=== PATIENT | female | born 1940 | race Caucasian/White ===

== ENCOUNTER 2016-06-21 17:07 | Emergency (ER) | payer OTHER ==
[~2016-06-21] VITALS: Ht 167.6 cm; Wt 124.1 kg
[~2016-06-21 17:07] MED LIST: ATOR10TA84 PO; CARV25 PO; DONE5TAB PO; MELO-273 PO; MEMA28CA PO; QUET200T PO; QUET25TA PO; TRAZ-144 PO; VALS40TA4 PO
[2016-06-21] MEDS ORDERED: ATOR10TA84 PO (18:13)
[2016-06-21] MEDS ORDERED: ACET-66 PO (18:13)
[2016-06-21] MEDS ORDERED: SERT100T12 PO (18:13)
[2016-06-21] MEDS ORDERED: MELO-273 PO (18:13)
[2016-06-21] MEDS ORDERED: MECL-111 PO (18:13)
[2016-06-21] MEDS ORDERED: TRAZ-147 PO (18:13)
[2016-06-21] MEDS ORDERED: IBUP-2070 PO (18:13)
[2016-06-21 18:23] LABS: BASOPHILS % (AUTO) 0.2 % (0.0-2.0); EOSINOPHILS % (AUTO) 1.7 % (1.0-6.0); HEMATOCRIT 38.8 % (36-46); LYMPHOCYTES # (AUTO) 2.2 K/uL (1.0-4.8); LYMPHOCYTES % (AUTO) 26.1 % (22.0-44.0); MEAN CORPUSCULAR HGB CONC 33.5 G/dL (31.0-37.0); MEAN CORPUSCULAR VOLUME 99 fL (80-100); MONOCYTES # (AUTO) 0.6 K/uL (0.1-1.0); MONOCYTES % (AUTO) 6.8 % (2.0-9.0); NEUTROPHILS # (AUTO) 5.4 K/uL (1.8-7.7); NEUTROPHILS % (AUTO) 65.2 % (40.0-70.0); PLATELET COUNT (AUTO) 153 K/uL (150-450); RED BLOOD CELL COUNT(AUTO) 3.93 MIL/uL (4.00-5.20); RED CELL DISTRIBUTION WIDTH 14.1 % (11.5-14.5); WHITE BLOOD COUNT (AUTO) 8.4 K/uL (4.5-11.0)
[2016-06-21 18:41] LABS: ANION GAP 5 mmol/L (8-16); CALCIUM, TOTAL 9.2 mg/dL (8.8-10.5); CARBON DIOXIDE 32 mmol/L (22-29); CHLORIDE 102 mmol/L (98-107); GLOMERULAR FILTR. RATE CALC 54 mL/min (>60); POTASSIUM 3.6 mmol/L (3.5-5.1); SODIUM SERUM 139 mmol/L (136-145); UREA NITROGEN, BLOOD 16 mg/dL (7-18)
[2016-06-21 18:47] LABS: ALANINE AMINOTRANSFERASE 17 U/L (12-78); ALBUMIN 4.2 g/dL (3.4-5.0); ASPARTATE AMINOTRANSFERASE 12 U/L (15-37); BILIRUBIN,TOTAL 0.3 mg/dL (0.1-1.0); TOTAL PROTEIN, SERUM 7.5 g/dL (6.4-8.2)
[2016-06-21] MEDS ORDERED: LORazepam 1 MG TABLET PO ONE (20:30)
[2016-06-21 20:40] VITALS: BP 140/81
== END 2016-06-21 20:55 | disposition home or self-care (01) ==
LOC: EMS 17:09
DX: F20.9 Schizophrenia, unspecified (principal); F03.90 Unspecified dementia, unspecified severity, without behavioral disturbance, psychotic disturbance, mood disturbance, and anxiety; F69 Unspecified disorder of adult personality and behavior; I10 Essential (primary) hypertension; I25.2 Old myocardial infarction; I25.10 Atherosclerotic heart disease of native coronary artery without angina pectoris
CPT/HCPCS: 36415; 80053; 80307; 85025; 99285; G0480

== ENCOUNTER 2016-06-23 17:14 | Emergency (ER) | payer OTHER ==
[~2016-06-23] VITALS: Ht 170.2 cm; Wt 81.8 kg
[~2016-06-23 17:14] MED LIST changes: +ACET-66 PO; +IBUP-2070 PO; +MECL-111 PO; +SERT100T12 PO; -TRAZ-144 PO; +TRAZ-147 PO
[2016-06-23] MEDS ORDERED: TraZODone HCL 50 MG TABLET PO ONE (19:45)
[2016-06-23] MEDS ORDERED: QUEtiapine FUMARATE 100 MG TABLET PO ONE (19:45)
[2016-06-23] MEDS ORDERED: TRAZ-144 PO (19:59)
[2016-06-23] MEDS ORDERED: QUET100T PO (19:59)
[2016-06-23 20:14] VITALS: BP 128/92
== END 2016-06-23 20:56 | disposition home or self-care (01) ==
LOC: EMS 17:15
DX: F03.91 Unspecified dementia, unspecified severity, with behavioral disturbance (principal); E78.00 Pure hypercholesterolemia, unspecified; I25.2 Old myocardial infarction; I25.10 Atherosclerotic heart disease of native coronary artery without angina pectoris
CPT/HCPCS: 99285

== ENCOUNTER 2016-11-14 19:54 | Emergency (ER) | payer OTHER ==
[~2016-11-14] VITALS: Ht 167.6 cm; Wt 81.8 kg
[~2016-11-14 19:54] MED LIST changes: +QUET100T PO; -QUET200T PO; +TRAZ-144 PO; -TRAZ-147 PO
[2016-11-14] MEDS ORDERED: ESCI10TA PO (20:04)
[2016-11-14 20:40] LABS: APPEARANCE,URINE CLEAR (CLEAR); GLUCOSE, URINE (UA) NEGATIVE (NEGATIVE); KETONES,URINE NEGATIVE (NEGATIVE); LEUKOCYTE ESTERASE ,URINE NEGATIVE (NEGATIVE); OCCULT BLOOD,URINE NEGATIVE (NEGATIVE); PROTEIN,URINE POS 1+ (NEGATIVE)
[2016-11-14] MEDS ORDERED: QUEtiapine FUMARATE 100 MG TABLET PO ONE (20:45)
[2016-11-14] MEDS ORDERED: TraZODone HCL 50 MG TABLET PO ONE (20:45)
[2016-11-14 20:48] LABS: ADD UA MICROSCOPIC NO
[2016-11-14 21:11] LABS: ANION GAP 10 mmol/L (8-16); CALCIUM, TOTAL 9.1 mg/dL (8.8-10.5); CARBON DIOXIDE 26 mmol/L (22-29); CHLORIDE 102 mmol/L (98-107); CREATININE 1.32 mg/dL (0.60-1.30); GLOMERULAR FILTR. RATE CALC 39 mL/min (>60); POTASSIUM 3.7 mmol/L (3.5-5.1); SODIUM SERUM 138 mmol/L (136-145); UREA NITROGEN, BLOOD 24 mg/dL (7-18)
[2016-11-14 21:17] LABS: ALANINE AMINOTRANSFERASE 15 U/L (12-78); ALBUMIN 4.1 g/dL (3.4-5.0); ASPARTATE AMINOTRANSFERASE 10 U/L (15-37); BILIRUBIN,TOTAL 0.3 mg/dL (0.1-1.0); TOTAL PROTEIN, SERUM 7.1 g/dL (6.4-8.2)
[2016-11-14 21:27] LABS: BASOPHILS # (AUTO) 0.03 K/uL (0.00-0.20); BASOPHILS % (AUTO) 0.3 % (0.0-2.0); EOSINOPHILS # (AUTO) 0.12 K/uL (0.00-0.70); EOSINOPHILS % (AUTO) 1.21 % (1.0-6.0); HEMATOCRIT 38.6 % (36-46); HEMOGLOBIN 12.6 g/dL (12.0-16.0); LYMPHOCYTES # (AUTO) 1.7 K/uL (1.0-4.8); LYMPHOCYTES % (AUTO) 17.1 % (22.0-44.0); MEAN CORPUSCULAR HEMOGLOBIN 31.9 pg (26.0-34.0); MEAN CORPUSCULAR HGB CONC 32.7 G/dL (31.0-37.0); MEAN CORPUSCULAR VOLUME 98 fL (80-100); MONOCYTES # (AUTO) 0.7 K/uL (0.1-1.0); MONOCYTES % (AUTO) 6.9 % (2.0-9.0); NEUTROPHILS # (AUTO) 7.5 K/uL (1.8-7.7); NEUTROPHILS % (AUTO) 74.5 % (40.0-70.0); PLATELET COUNT (AUTO) 148 K/uL (150-450); RED BLOOD CELL COUNT(AUTO) 3.95 MIL/uL (4.00-5.20); RED CELL DISTRIBUTION WIDTH 14.2 % (11.5-14.5); WHITE BLOOD COUNT (AUTO) 10.1 K/uL (4.5-11.0)
[2016-11-15 00:12] VITALS: BP 122/78
== END 2016-11-15 00:14 | disposition home or self-care (01) ==
LOC: EMS 19:55
DX: F03.90 Unspecified dementia, unspecified severity, without behavioral disturbance, psychotic disturbance, mood disturbance, and anxiety (principal); I25.2 Old myocardial infarction; I25.10 Atherosclerotic heart disease of native coronary artery without angina pectoris; E78.00 Pure hypercholesterolemia, unspecified
CPT/HCPCS: 36415; 80053; 80307; 81003; 85025; 99285; G0480

== ENCOUNTER 2017-02-24 10:14 | Inpatient (IN) | payer MEDICARE ==
[~2017-02-24] VITALS: Ht 170.2 cm; Wt 68.1 kg
[~2017-02-24 10:14] MED LIST changes: -ACET-66 PO; +DIVA250T4 PO; +DONE10TA8 PO; -DONE5TAB PO; +ESCI10TA PO; -IBUP-2070 PO; -MECL-111 PO; +MELO-107 PO; -MELO-273 PO; +MEMA10TA11 PO; -MEMA28CA PO; -QUET25TA PO; -SERT100T12 PO
[2017-02-24] MEDS ORDERED: 0.9% SODIUM CHLORIDE 10 ML SYRINGE IVP PRN ×2 (10:30→11:45)
[2017-02-24] MEDS ORDERED: SODIUM CHLORIDE 0.9% 1,000 ML IV ONE ×4 (10:30→15:30)
[2017-02-24 10:32] LABS: GLUCOSE,POINT OF CARE 140 MG/DL (70-110)
[2017-02-24 10:46] LABS: INR 1.1 (0.9-1.1); PROTHROMBIN TIME 11.2 SEC (9.4-11.6)
[2017-02-24 10:48] LABS: CALCIUM, TOTAL 9.2 mg/dL (8.8-10.5); CREATININE 1.17 mg/dL (0.60-1.30); POTASSIUM 3.8 mmol/L (3.5-5.1)
[2017-02-24 10:50] LABS: HEMATOCRIT 41.1 % (36-46); HEMOGLOBIN 14.1 g/dL (12.0-16.0); MEAN CORPUSCULAR HEMOGLOBIN 33.1 pg (26.0-34.0); MEAN CORPUSCULAR HGB CONC 34.4 G/dL (31.0-37.0); MEAN CORPUSCULAR VOLUME 96 fL (80-100); PLATELET COUNT (AUTO) 71 K/uL (150-450); RED BLOOD CELL COUNT(AUTO) 4.27 MIL/uL (4.00-5.20); WHITE BLOOD COUNT (AUTO) 19.1 K/uL (4.5-11.0)
[2017-02-24 10:54] LABS: ALBUMIN 3.5 g/dL (3.4-5.0); BILIRUBIN,TOTAL 0.9 mg/dL (0.1-1.0); TOTAL PROTEIN, SERUM 7.6 g/dL (6.4-8.2)
[2017-02-24 11:04] LABS: LACTIC ACID 1.9 mmol/L (0.4-2.0)
[2017-02-24 11:13] LABS: BAND NEUTROPHILS % (MANUAL) 15 % (1-5); LYMPHOCYTES % (MANUAL) 11 % (22-44); TOTAL CELLS COUNTED 100
[2017-02-24 11:14] LABS: RBC MORPHOLOGY COMMENT NORMAL RBC MORPH
[2017-02-24] MEDS ORDERED: AZITHROMYCIN 500 MG/NS 250 ML IV ONE (11:30)
[2017-02-24] MEDS ORDERED: CefTRIAXone 1 GM/DEXTROSE 50 ML IV ONE (11:30)
[2017-02-24 11:42] LABS: APPEARANCE,URINE CLOUDY (CLEAR); GLUCOSE, URINE (UA) NEGATIVE (NEGATIVE); KETONES,URINE 40 mg/dL (NEGATIVE); LEUKOCYTE ESTERASE ,URINE LARGE (NEGATIVE); OCCULT BLOOD,URINE MODERATE (NEGATIVE); PROTEIN,URINE SEE CONFIRM (NEGATIVE)
[2017-02-24 11:44] LABS: ADD UA MICROSCOPIC YES
[2017-02-24] MEDS ORDERED: ACETAMINOPHEN 325 MG TABLET PO PRN ×2 (11:45→15:30)
[2017-02-24] MEDS ORDERED: ACETAMINOPHEN 1000 MG/ISO-OSM 100 ML IV ONE (11:45)
[2017-02-24 11:58] LABS: RBC,URINE 26-50 /HPF (0-2); SULFOSALICYLIC ACID,URINE 2+ (Negative); WBC,URINE 51-100 /HPF (0-5)
[2017-02-24 11:59] LABS: SQUAMOUS EPITHELIAL CELL,UR Moderate /LPF (None Seen)
[2017-02-24 13:30] VITALS: BP 107/58
[2017-02-24 15:11] VITALS: BP 115/62
[2017-02-24] MEDS ORDERED: ZOLPIDEM TARTRATE 5 MG TABLET PO PRN (15:30)
[2017-02-24] MEDS ORDERED: HYDROCODONE/ACETAMINOPHEN 5-325 MG TABLET PO PRN (15:30)
[2017-02-24] MEDS ORDERED: ONDANSETRON HCL 4 MG/2 ML VIAL IVP PRN (15:30)
[2017-02-24] MEDS ORDERED: BISACODYL 10 MG RECTAL RECTAL SUPPOSITORY PR PRN (15:30)
[2017-02-24] MEDS ORDERED: MORPHINE SULFATE 2 MG/ML SYRINGE IVP PRN (15:30)
[2017-02-24] MEDS ORDERED: MAGNESIUM HYDROXIDE SUSPENSION 30 ML UDCUP PO PRN (15:30)
[2017-02-24] MEDS: HEPARIN SODIUM,PORCINE 5,000 UNITS/ML VIAL SQ SCH ×2 (17:05→23:56)
[2017-02-24 20:02] VITALS: BP 143/67
[2017-02-24] MEDS ORDERED: MELOXICAM 7.5 MG TABLET PO SCH (21:00)
[2017-02-24] MEDS: DOCUSATE SODIUM 100 MG CAPSULE PO SCH (21:06)
[2017-02-24] MEDS: MEMANTINE HCL 10 MG TABLET PO SCH (21:06)
[2017-02-24] MEDS: ATORVASTATIN CALCIUM 10 MG TABLET PO SCH (21:06)
[2017-02-24 23:56] VITALS: BP 160/87
[2017-02-25 05:10] VITALS: BP 145/68
[2017-02-25 06:00] LABS: BASOPHILS # (AUTO) 0.01 K/uL (0.00-0.20); BASOPHILS % (AUTO) 0.1 % (0.0-2.0); EOSINOPHILS # (AUTO) 0.02 K/uL (0.00-0.70); HEMATOCRIT 34.7 % (36-46); HEMOGLOBIN 11.8 g/dL (12.0-16.0); LYMPHOCYTES # (AUTO) 0.5 K/uL (1.0-4.8); LYMPHOCYTES % (AUTO) 3.4 % (22.0-44.0); MEAN CORPUSCULAR HEMOGLOBIN 33.1 pg (26.0-34.0); MEAN CORPUSCULAR VOLUME 98 fL (80-100); MONOCYTES # (AUTO) 0.9 K/uL (0.1-1.0); MONOCYTES % (AUTO) 5.4 % (2.0-9.0); NEUTROPHILS # (AUTO) 14.4 K/uL (1.8-7.7); PLATELET COUNT (AUTO) 63 K/uL (150-450); RED BLOOD CELL COUNT(AUTO) 3.55 MIL/uL (4.00-5.20); RED CELL DISTRIBUTION WIDTH 14.1 % (11.5-14.5); WHITE BLOOD COUNT (AUTO) 15.8 K/uL (4.5-11.0)
[2017-02-25 06:16] LABS: ANION GAP 8 mmol/L (8-16); CALCIUM, TOTAL 8.4 mg/dL (8.8-10.5); CARBON DIOXIDE 25 mmol/L (22-29); CHLORIDE 114 mmol/L (98-107); CREATININE 0.89 mg/dL (0.60-1.30); GLOMERULAR FILTR. RATE CALC > 60 mL/min (>60); POTASSIUM 3.6 mmol/L (3.5-5.1); SODIUM SERUM 147 mmol/L (136-145); UREA NITROGEN, BLOOD 25 mg/dL (7-18)
[2017-02-25 06:50] LABS: NEUTROPHILS % (AUTO) 91.1 % (40.0-70.0)
[2017-02-25] MEDS ORDERED: MELOXICAM 7.5 MG TABLET PO SCH (08:00)
[2017-02-25 08:07] VITALS: BP 138/74
[2017-02-25] MEDS: HEPARIN SODIUM,PORCINE 5,000 UNITS/ML VIAL SQ SCH (08:51)
[2017-02-25] MEDS: DOCUSATE SODIUM 100 MG CAPSULE PO SCH ×2 (08:58→20:07)
[2017-02-25] MEDS: PANTOPRAZOLE SODIUM 40 MG DR TABLET PO SCH (08:58)
[2017-02-25] MEDS: MEMANTINE HCL 10 MG TABLET PO SCH ×2 (08:58→20:07)
[2017-02-25 09:36] LABS: RBC MORPHOLOGY COMMENT NORMAL RBC MORPH
[2017-02-25] MEDS ORDERED: SODIUM CHLORIDE 0.9% 100 ML ONE (11:51)
[2017-02-25] MEDS: CefTRIAXone 1 GM/DEXTROSE 50 ML IV SCH (11:56)
[2017-02-25 12:11] VITALS: BP 127/52
[2017-02-25] MEDS ORDERED: MAGNESIUM SULFATE 2 GM in DEXTROSE 5%-WATER 50 ML IV PRN (13:00)
[2017-02-25] MEDS ORDERED: MAGNESIUM SULFATE 4 GM/WATER 100 ML IV PRN (13:00)
[2017-02-25] MEDS ORDERED: MAGNESIUM OXIDE 400 MG TABLET PO PRN (13:00)
[2017-02-25 13:06] LABS: ALBUMIN 2.5 g/dL (3.4-5.0)
[2017-02-25 16:27] VITALS: BP 102/45
[2017-02-25 19:44] VITALS: BP 113/53
[2017-02-25] MEDS: ATORVASTATIN CALCIUM 10 MG TABLET PO SCH (20:07)
[2017-02-26] VITALS (7 sets, daily range): BP systolic 123–138; BP diastolic 51–70
[2017-02-26 06:22] LABS: BASOPHILS % (AUTO) 0.1 % (0.0-2.0); EOSINOPHILS % (AUTO) 0.7 % (1.0-6.0); HEMATOCRIT 33.7 % (36-46); HEMOGLOBIN 11.6 g/dL (12.0-16.0); LYMPHOCYTES % (AUTO) 9.3 % (22.0-44.0); MEAN CORPUSCULAR HEMOGLOBIN 33.2 pg (26.0-34.0); MEAN CORPUSCULAR HGB CONC 34.3 G/dL (31.0-37.0); MEAN CORPUSCULAR VOLUME 97 fL (80-100); MONOCYTES # (AUTO) 1.2 K/uL (0.1-1.0); MONOCYTES % (AUTO) 10.9 % (2.0-9.0); NEUTROPHILS # (AUTO) 8.6 K/uL (1.8-7.7); PLATELET COUNT (AUTO) 72 K/uL (150-450); RED BLOOD CELL COUNT(AUTO) 3.48 MIL/uL (4.00-5.20); RED CELL DISTRIBUTION WIDTH 13.7 % (11.5-14.5); WHITE BLOOD COUNT (AUTO) 10.9 K/uL (4.5-11.0)
[2017-02-26 06:24] LABS: CALCIUM, TOTAL 8.1 mg/dL (8.8-10.5); CREATININE 0.94 mg/dL (0.60-1.30); MAGNESIUM 1.5 mg/dL (1.80-2.40)
[2017-02-26] MEDS ORDERED: SODIUM CHLORIDE 0.9% 100 ML ONE (08:52)
[2017-02-26] MEDS: DOCUSATE SODIUM 100 MG CAPSULE PO SCH ×2 (08:58→20:28)
[2017-02-26] MEDS: PANTOPRAZOLE SODIUM 40 MG DR TABLET PO SCH (08:59)
[2017-02-26] MEDS: MEMANTINE HCL 10 MG TABLET PO SCH ×2 (08:59→20:20)
[2017-02-26] MEDS ORDERED: POTASSIUM CHL 10 MEQ/WATER 50 ML IV PRN (09:45)
[2017-02-26] MEDS: POTASSIUM CHLORIDE 20 MEQ ER TABLET PO PRN ×2 (10:40→15:37)
[2017-02-26] MEDS: ASPIRIN 81 MG CHEWABLE TABLET PO SCH (10:40)
[2017-02-26] MEDS: CefTRIAXone 1 GM/DEXTROSE 50 ML IV SCH (11:39)
[2017-02-26] MEDS: ATORVASTATIN CALCIUM 10 MG TABLET PO SCH (20:21)
[2017-02-27 04:12] VITALS: BP 132/58
[2017-02-27 07:30] VITALS: BP 167/67
[2017-02-27 07:30] LABS: BASOPHILS % (AUTO) 0.1 % (0.0-2.0); EOSINOPHILS % (AUTO) 1.3 % (1.0-6.0); HEMATOCRIT 37.3 % (36-46); HEMOGLOBIN 12.5 g/dL (12.0-16.0); LYMPHOCYTES % (AUTO) 10.8 % (22.0-44.0); MEAN CORPUSCULAR HEMOGLOBIN 32.8 pg (26.0-34.0); MEAN CORPUSCULAR HGB CONC 33.4 G/dL (31.0-37.0); MEAN CORPUSCULAR VOLUME 98 fL (80-100); MONOCYTES # (AUTO) 1.1 K/uL (0.1-1.0); MONOCYTES % (AUTO) 11.2 % (2.0-9.0); NEUTROPHILS # (AUTO) 7.3 K/uL (1.8-7.7); NEUTROPHILS % (AUTO) 76.6 % (40.0-70.0); PLATELET COUNT (AUTO) 101 K/uL (150-450); RED BLOOD CELL COUNT(AUTO) 3.81 MIL/uL (4.00-5.20); RED CELL DISTRIBUTION WIDTH 13.6 % (11.5-14.5); WHITE BLOOD COUNT (AUTO) 9.5 K/uL (4.5-11.0)
[2017-02-27 08:00] LABS: B-TYPE NATRIURETIC PEPTIDE 590 pg/mL (0-100)
[2017-02-27 08:13] LABS: ANION GAP 6 mmol/L (8-16); CALCIUM, TOTAL 8.6 mg/dL (8.8-10.5); CARBON DIOXIDE 29 mmol/L (22-29); CHLORIDE 104 mmol/L (98-107); CREATINE KINASE MB 0.7 ng/mL (0-5); CREATINE KINASE, TOTAL 136 U/L (26-192); CREATININE 0.77 mg/dL (0.60-1.30); GLOMERULAR FILTR. RATE CALC > 60 mL/min (>60); POTASSIUM 3.7 mmol/L (3.5-5.1); SODIUM SERUM 139 mmol/L (136-145); UREA NITROGEN, BLOOD 7 mg/dL (7-18)
[2017-02-27] MEDS: DOCUSATE SODIUM 100 MG CAPSULE PO SCH ×2 (08:51→21:32)
[2017-02-27] MEDS: PANTOPRAZOLE SODIUM 40 MG DR TABLET PO SCH (08:51)
[2017-02-27] MEDS: MEMANTINE HCL 10 MG TABLET PO SCH ×2 (08:51→21:32)
[2017-02-27] MEDS: ASPIRIN 81 MG CHEWABLE TABLET PO SCH (08:52)
[2017-02-27] MEDS ORDERED: *CLINICAL-RX DOSING [ENTER DRUG IN COMMENTS] CLINICAL ONE (11:00)
[2017-02-27 11:01] VITALS: BP 155/49
[2017-02-27] MEDS: CefoTEtan DISOD 1 GM/DEXTROSE 50 ML IV SCH (12:12)
[2017-02-27 15:11] VITALS: BP 147/99
[2017-02-27 19:41] VITALS: BP 135/73
[2017-02-27] MEDS: ATORVASTATIN CALCIUM 10 MG TABLET PO SCH (21:31)
[2017-02-27 23:50] VITALS: BP 126/64
[2017-02-28] MEDS: CefoTEtan DISOD 1 GM/DEXTROSE 50 ML IV SCH ×3 (00:34→23:46)
[2017-02-28 06:26] VITALS: BP 146/67
[2017-02-28] MEDS: DOCUSATE SODIUM 100 MG CAPSULE PO SCH ×2 (08:10→20:24)
[2017-02-28] MEDS: MEMANTINE HCL 10 MG TABLET PO SCH ×2 (08:11→20:23)
[2017-02-28] MEDS: PANTOPRAZOLE SODIUM 40 MG DR TABLET PO SCH (08:11)
[2017-02-28] MEDS: ASPIRIN 81 MG CHEWABLE TABLET PO SCH (08:11)
[2017-02-28 08:15] VITALS: BP 159/74
[2017-02-28] MEDS ORDERED: SODIUM CHLORIDE 0.9% 100 ML ONE (11:44)
[2017-02-28 12:00] VITALS: BP 115/55
[2017-02-28] MEDS ORDERED: ASPI81TA39 PO (13:15)
[2017-02-28] MEDS ORDERED: CEFO1I IV (13:16)
[2017-02-28] MEDS ORDERED: DSS100 PO (13:17)
[2017-02-28] MEDS ORDERED: PANT40TA25 PO (13:18)
[2017-02-28] MEDS ORDERED: ACET-784 PO (13:18)
[2017-02-28] MEDS ORDERED: BISA10S PR (13:19)
[2017-02-28] MEDS ORDERED: HYDR-4061 PO (13:20)
[2017-02-28] MEDS ORDERED: MOM30 PO (13:26)
[2017-02-28 15:57] VITALS: BP 115/61
[2017-02-28 19:30] VITALS: BP 140/80
[2017-02-28] MEDS: ATORVASTATIN CALCIUM 10 MG TABLET PO SCH (20:24)
[2017-02-28] MEDS ORDERED: SODIUM CHLORIDE 0.9% 250 ML IV ONE (23:35)
[2017-02-28 23:53] VITALS: BP 140/58
[2017-03-01 05:13] VITALS: BP 149/67
[2017-03-01 07:42] VITALS: BP 136/66
[2017-03-01] MEDS: DOCUSATE SODIUM 100 MG CAPSULE PO SCH ×2 (08:36→22:05)
[2017-03-01] MEDS: MEMANTINE HCL 10 MG TABLET PO SCH ×2 (08:36→22:05)
[2017-03-01] MEDS: ASPIRIN 81 MG CHEWABLE TABLET PO SCH (08:36)
[2017-03-01] MEDS: PANTOPRAZOLE SODIUM 40 MG DR TABLET PO SCH (08:36)
[2017-03-01 11:20] VITALS: BP 143/83
[2017-03-01] MEDS ORDERED: SODIUM CHLORIDE 0.9% 100 ML ONE (12:00)
[2017-03-01] MEDS: CefoTEtan DISOD 1 GM/DEXTROSE 50 ML IV SCH ×2 (12:01→23:40)
[2017-03-01 15:56] VITALS: BP 146/75
[2017-03-01 19:56] VITALS: BP 162/85
[2017-03-01] MEDS: ATORVASTATIN CALCIUM 10 MG TABLET PO SCH (22:04)
[2017-03-02 00:22] VITALS: BP 151/70
[2017-03-02 04:33] VITALS: BP 150/65
[2017-03-02 07:34] VITALS: BP 133/63
[2017-03-02] MEDS: PANTOPRAZOLE SODIUM 40 MG DR TABLET PO SCH (08:27)
[2017-03-02] MEDS: MEMANTINE HCL 10 MG TABLET PO SCH (08:27)
[2017-03-02] MEDS: ASPIRIN 81 MG CHEWABLE TABLET PO SCH (08:27)
[2017-03-02] MEDS: DOCUSATE SODIUM 100 MG CAPSULE PO SCH (08:29)
[2017-03-02 10:27] LABS: BASOPHILS % (AUTO) 0.3 % (0.0-2.0); EOSINOPHILS % (AUTO) 1.4 % (1.0-6.0); HEMATOCRIT 38.8 % (36-46); HEMOGLOBIN 13.2 g/dL (12.0-16.0); LYMPHOCYTES # (AUTO) 1.2 K/uL (1.0-4.8); LYMPHOCYTES % (AUTO) 10.9 % (22.0-44.0); MEAN CORPUSCULAR HEMOGLOBIN 32.7 pg (26.0-34.0); MEAN CORPUSCULAR HGB CONC 34.1 G/dL (31.0-37.0); MEAN CORPUSCULAR VOLUME 96 fL (80-100); MONOCYTES # (AUTO) 0.9 K/uL (0.1-1.0); MONOCYTES % (AUTO) 8.8 % (2.0-9.0); NEUTROPHILS # (AUTO) 8.4 K/uL (1.8-7.7); NEUTROPHILS % (AUTO) 78.6 % (40.0-70.0); PLATELET COUNT (AUTO) 203 K/uL (150-450); RED BLOOD CELL COUNT(AUTO) 4.05 MIL/uL (4.00-5.20); RED CELL DISTRIBUTION WIDTH 13.3 % (11.5-14.5); WHITE BLOOD COUNT (AUTO) 10.7 K/uL (4.5-11.0)
[2017-03-02 10:47] LABS: CREATININE 1.05 mg/dL (0.60-1.30); POTASSIUM 3.7 mmol/L (3.5-5.1)
[2017-03-02 11:23] VITALS: BP 150/70
[2017-03-02] MEDS: CefoTEtan DISOD 1 GM/DEXTROSE 50 ML IV SCH (12:30)
[2017-03-02 15:01] VITALS: BP 141/67
== END 2017-03-02 17:55 | disposition short-term general hospital (02) | DRG 871 ==
LOC: EMS 10:15 → 5S 12:06
PROVIDERS: ADMIT Internal Medicine; ATTEND Internal Medicine
DX: A41.9 Sepsis, unspecified organism (principal); G93.41 Metabolic encephalopathy; F03.90 Unspecified dementia, unspecified severity, without behavioral disturbance, psychotic disturbance, mood disturbance, and anxiety; D69.6 Thrombocytopenia, unspecified; N39.0 Urinary tract infection, site not specified; E78.5 Hyperlipidemia, unspecified; B96.20 Unspecified Escherichia coli [E. coli] as the cause of diseases classified elsewhere; I10 Essential (primary) hypertension; I25.10 Atherosclerotic heart disease of native coronary artery without angina pectoris; I25.2 Old myocardial infarction; R62.7 Adult failure to thrive; Z95.5 Presence of coronary angioplasty implant and graft; Z79.1 Long term (current) use of non-steroidal anti-inflammatories (NSAID); Z79.899 Other long term (current) drug therapy
CPT/HCPCS: 51702; 70450; 82962; 83605; 83735; 84132; 87040; 87086; 93005; 93306; 96365; 96375; 99291; J0131; J0456; J0696; J1644; J3475; J3490; J7030; J7050; J7060

== ENCOUNTER 2017-04-10 20:33 | Emergency (ER) | payer MEDICARE ==
[~2017-04-10] VITALS: Ht 162.6 cm; Wt 65.9 kg
[~2017-04-10 20:33] MED LIST changes: +ACET-784 PO; +ASPI81TA39 PO; +BISA10S PR; +CEFO1I IV; +DSS100 PO; +HYDR-4061 PO; +MOM30 PO; +PANT40TA25 PO
[2017-04-10 21:14] LABS: BASOPHILS % (AUTO) 0.3 % (0.0-2.0); HEMATOCRIT 42.3 % (36-46); HEMOGLOBIN 14.4 g/dL (12.0-16.0); LYMPHOCYTES # (AUTO) 1.8 K/uL (1.0-4.8); LYMPHOCYTES % (AUTO) 17.3 % (22.0-44.0); MEAN CORPUSCULAR HEMOGLOBIN 33.1 pg (26.0-34.0); MEAN CORPUSCULAR HGB CONC 34.1 G/dL (31.0-37.0); MEAN CORPUSCULAR VOLUME 97 fL (80-100); MONOCYTES # (AUTO) 0.9 K/uL (0.1-1.0); MONOCYTES % (AUTO) 8.1 % (2.0-9.0); NEUTROPHILS # (AUTO) 7.8 K/uL (1.8-7.7); NEUTROPHILS % (AUTO) 73.3 % (40.0-70.0); PLATELET COUNT (AUTO) 220 K/uL (150-450); RED BLOOD CELL COUNT(AUTO) 4.36 MIL/uL (4.00-5.20); RED CELL DISTRIBUTION WIDTH 15.2 % (11.5-14.5); WHITE BLOOD COUNT (AUTO) 10.6 K/uL (4.5-11.0)
[2017-04-10 21:19] LABS: ANION GAP 9 mmol/L (8-16); CALCIUM, TOTAL 9.6 mg/dL (8.8-10.5); CARBON DIOXIDE 26 mmol/L (22-29); CHLORIDE 105 mmol/L (98-107); CREATININE 1.01 mg/dL (0.60-1.30); GLOMERULAR FILTR. RATE CALC 53 mL/min (>60); POTASSIUM 3.9 mmol/L (3.5-5.1); SODIUM SERUM 140 mmol/L (136-145); UREA NITROGEN, BLOOD 18 mg/dL (7-18)
[2017-04-10 21:24] LABS: ALANINE AMINOTRANSFERASE 19 U/L (12-78); ASPARTATE AMINOTRANSFERASE 15 U/L (15-37); BILIRUBIN,TOTAL 0.5 mg/dL (0.1-1.0); TOTAL PROTEIN, SERUM 7.3 g/dL (6.4-8.2)
[2017-04-11 02:00] VITALS: BP 129/88
== END 2017-04-11 02:47 | disposition home or self-care (01) ==
LOC: EMS 20:35
DX: F91.9 Conduct disorder, unspecified (principal); I25.10 Atherosclerotic heart disease of native coronary artery without angina pectoris; E78.00 Pure hypercholesterolemia, unspecified; I10 Essential (primary) hypertension; I25.2 Old myocardial infarction; Z79.82 Long term (current) use of aspirin
CPT/HCPCS: 36415; 80053; 85025; 99284; G0480